=== PATIENT | female | born 1975 | race Two or more races ===

== ENCOUNTER 2021-05-08 16:29 | Inpatient (IN) | payer MEDICAID, OTHER ==
[~2021-05-08] VITALS: Ht 162.6 cm; Wt 67.7 kg
[2021-05-08] MEDS ORDERED: LEVOTHYROXINE (16:43)
[2021-05-08] MEDS ORDERED: ASPIRIN 81MG TABLET PO ONE (16:45)
[2021-05-08] MEDS ORDERED: SODIUM CHLORIDE 0.9% 1,000 ML IV ONE (16:45)
[2021-05-08] MEDS ORDERED: METOPROLOL TARTRATE 50MG TABLET PO ONE (17:15)
[2021-05-08 17:55] LABS: BASOPHILS % 0.8 % (0.0-2.0); EOSINOPHILS % 2.4 % (0.0-5.0); HEMATOCRIT. 37.2 % (36.0-48.0); HEMOGLOBIN. 12.8 g/dL (12.0-16.0); LYMPHOCYTES % 27.3 % (20.0-50.0); MEAN CORPUSCULAR HEMOGLOBIN 27.1 pg (28.0-32.0); MEAN CORPUSCULAR VOLUME 78.7 fL (81.0-99.0); MEAN PLATELET VOLUME 9.8 fl (7.4-10.4); MONOCYTES % 8.1 % (2.0-8.0); NEUTROPHILS % 61.4 % (40.0-76.0); PLATELET 288 x1000/uL (130-400); RED BLOOD CELL COUNT 4.73 mill/uL (4.2-5.4); RED CELL DISTRIBUTION WIDTH 13.8 % (11.6-14.6)
[2021-05-08 17:59] LABS: CHLORIDE 112 mEq/L (98-107)
[2021-05-08 18:01] LABS: D-DIMER 0.47 mg/L FEU (<0.50); PARTIAL THROMBOPLASTIN TIME 28.8 sec (23.4-31.0); PROTHROMBIN TIME 10.6 sec (9.6-11.0)
[2021-05-08 18:02] LABS: HCG SCREEN NEGATIVE
[2021-05-08] MEDS ORDERED: GUAIFENESIN 200MG/10ML SUGAR FREE UDC PO PRN (21:30)
[2021-05-08] MEDS ORDERED: CLONIDINE 0.1MG TABLET PO PRN (21:30)
[2021-05-08] MEDS ORDERED: MAGNESIUM/ALUMINUM HYDROXIDE/SIMETHICONE 30ML UDC PO PRN (21:30)
[2021-05-08] MEDS ORDERED: NA PHOS,M-B/NA PHOS,DI-BA ENEMA 118ML PR PRN (21:30)
[2021-05-08] MEDS ORDERED: IPRATROPIUM/ALBUTEROL 0.5-3(2.5)MG/3ML NEB NEB PRN (21:30)
[2021-05-08] MEDS ORDERED: ZOLPIDEM TARTRATE 5MG TABLET PO PRN (21:30)
[2021-05-08] MEDS ORDERED: ONDANSETRON HCL 4MG/2ML INJ IV PRN (21:30)
[2021-05-08] MEDS ORDERED: ACETAMINOPHEN 325MG TABLET PO PRN ×2 (21:30)
[2021-05-08] MEDS ORDERED: DOCUSATE SODIUM 100MG CAPSULE PO PRN (21:30)
[2021-05-08] MEDS ORDERED: NITROGLYCERIN 0.4MG TABLET SL SL PRN (21:30)
[2021-05-08] MEDS ORDERED: KETOROLAC 15MG/ML VIAL IV PRN (21:45)
[2021-05-08 23:07] LABS: ETHANOL BLOOD < 10 mg/dL
[2021-05-08 23:09] LABS: LDL CHOLESTEROL 155 mg/dL (5-100); TOTAL IRON BINDING CAPACITY 375 ug/dL (250-450)
[2021-05-08 23:11] LABS: HDL CHOLESTEROL 40 mg/dL (40-59)
[2021-05-08 23:13] LABS: CREATINE KINASE 78 IU/L (26-192)
[2021-05-08 23:14] LABS: CREATINE KINASE MB FRACTION < 1.0 ng/mL (0.5-3.6); T4 FREE 0.97 ng/dL (0.76-1.46)
[2021-05-09] VITALS (8 sets, daily range): BP systolic 96–120; BP diastolic 58–84
[2021-05-09 00:02] LABS: VITAMIN B12 SERUM >2000 pg/mL pg/mL (211-911)
[2021-05-09] MEDS: ENOXAPARIN 40MG/0.4ML SYR SUBCUT SCH ×2 (00:56→20:45)
[2021-05-09] MEDS: DILTIAZEM HCL 30MG TABLET PO SCH ×3 (00:57→13:00)
[2021-05-09 01:43] LABS: *AMPHETAMINES SCREEN URINE NEGATIVE (NEGATIVE); *BARBITURATES SCREEN URINE NEGATIVE (NEGATIVE); *BENZODIAZEPINES SCREEN URINE NEGATIVE (NEGATIVE); *COCAINE SCREEN URINE NEGATIVE (NEGATIVE); METHADONE URINE SCREEN NEGATIVE (NEGATIVE); OPIATES URINE SCREEN NEGATIVE (NEGATIVE); PHENCYCLIDINE URINE SCREEN NEGATIVE (NEGATIVE)
[2021-05-09 01:44] LABS: CANNABINOID URINE SCREEN NEGATIVE (NEGATIVE)
[2021-05-09 05:05] LABS: BASOPHILS % 0.5 % (0.0-2.0); EOSINOPHILS % 2.1 % (0.0-5.0); HEMATOCRIT. 37.6 % (36.0-48.0); HEMOGLOBIN. 12.2 g/dL (12.0-16.0); LYMPHOCYTES % 28.7 % (20.0-50.0); MEAN CORPUSCULAR HEMOGLOBIN 25.8 pg (28.0-32.0); MEAN CORPUSCULAR VOLUME 79.1 fL (81.0-99.0); MEAN PLATELET VOLUME 9.7 fl (7.4-10.4); MONOCYTES % 7.6 % (2.0-8.0); NEUTROPHILS % 61.1 % (40.0-76.0); PLATELET 276 x1000/uL (130-400); RED BLOOD CELL COUNT 4.75 mill/uL (4.2-5.4); RED CELL DISTRIBUTION WIDTH 13.8 % (11.6-14.6)
[2021-05-09 05:09] LABS: CHLORIDE 108 mEq/L (98-107)
[2021-05-09 05:14] LABS: PHOSPHORUS 2.7 mg/dL (2.5-4.9)
[2021-05-09 05:16] LABS: CREATINE KINASE 71 IU/L (26-192)
[2021-05-09 05:18] LABS: CREATINE KINASE MB FRACTION < 1.0 ng/mL (0.5-3.6)
[2021-05-09] MEDS: ASPIRIN 325MG EC TABLET PO SCH (13:00)
[2021-05-09] MEDS: FAMOTIDINE 20MG TABLET PO SCH ×2 (13:00→20:46)
[2021-05-09] MEDS ORDERED: LEVO100T9 MT (13:31)
[2021-05-09] MEDS: METOPROLOL TARTRATE 25MG TABLET PO SCH (20:46)
[2021-05-09] MEDS ORDERED: ATORVASTATIN CALCIUM 40MG TABLET PO SCH (21:00)
[2021-05-10] VITALS (7 sets, daily range): BP systolic 94–116; BP diastolic 61–76
[2021-05-10] MEDS: METOPROLOL TARTRATE 25MG TABLET PO SCH (08:35)
[2021-05-10] MEDS: ASPIRIN 325MG EC TABLET PO SCH (08:35)
[2021-05-10] MEDS: FAMOTIDINE 20MG TABLET PO SCH (08:35)
== END 2021-05-10 13:54 | disposition home or self-care (01) | DRG 201 ==
LOC: ER 16:29 → EDBEDREQTM 21:14 → EDBEDREQ 21:14 → MICUSO 21:33 → 3WST 05-09 10:11
PROVIDERS: ADMIT Internal Medicine; ATTEND Internal Medicine
DX: I47.1 Supraventricular tachycardia (principal); E83.51 Hypocalcemia; M94.0 Chondrocostal junction syndrome [Tietze]; E03.9 Hypothyroidism, unspecified; E78.5 Hyperlipidemia, unspecified; Z79.899 Other long term (current) drug therapy
CPT/HCPCS: 36415; 71045; 80053; 80061; 80305; 80320; 82550; 82553; 82607; 82746; 83036; 83540; 83550; 83735; 83880; 84100; 84439; 84443; 84484; 84703; 85025; 85379; 93005; 93306; 93970; 99285; J1650; J7030; G0480